=== PATIENT | male | born 1955 | race Caucasian/White ===

== ENCOUNTER 2018-03-19 19:30 | Emergency (ER) | payer OTHER ==
[~2018-03-19] VITALS: Ht 172.7 cm; Wt 104.3 kg
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
[2018-03-19 19:39] VITALS: BP 132/87
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
== END 2018-03-19 20:37 ==
LOC: ERH 19:30
DX: T74.11XA Adult physical abuse, confirmed, initial encounter (principal); S01.01XA Laceration without foreign body of scalp, initial encounter; S09.90XA Unspecified injury of head, initial encounter; Y04.0XXA Assault by unarmed brawl or fight, initial encounter; Y07.50 Unspecified non-family member, perpetrator of maltreatment and neglect; Y92.481 Parking lot as the place of occurrence of the external cause